=== PATIENT | male | born 1975 | race Hispanic/Latino ===

== ENCOUNTER 2016-12-15 02:41 | Emergency (ER) | payer OTHER ==
[2016-12-15 02:51] VITALS: BP 148/92; PULSE 77; RESP 16; TEMP 97; O2SAT 100
--- NOTE | 2016-12-15 03:05 | ED PDOC ---
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 PT states he attempted to get it out but thinks he pushed it in further. Past Medical History Reviewed: Historical Data, Nursing Documentation, Vital Signs Vital Signs: Last Vital Signs Temp 97.0 F L 12/15/16 02:49 Pulse 77 12/15/16 02:49 Resp 16 12/15/16 02:49 BP 148/92 H 12/15/16 02:49 Pulse Ox 100 12/15/16 02:49 - Medical History PMH: No Chronic Diseases - Surgical History Surgical History: No Surg Hx - Family History Family History: States: No Known Family Hx - Living Arrangements Living Arrangements: With Family - Social History Current smoker - smoking cessation education provided: No - Immunization History Hx Tetanus Toxoid Vaccination: No Hx Influenza Vaccination: No Hx Pneumococcal Vaccination: No - Home Medications Home Medications: Ambulatory Orders Medication Instructions Recorded Naproxen 375 mg PO Q8 PRN #21 tab 07/04/14 Naproxen [Naprosyn] 500 mg PO BID #20 tablet 01/13/16 - Allergies Allergies/Adverse Reactions: Allergies Allergy/AdvReac Type Severity Reaction Status Date / Time seafood Allergy ANAPHYLAXIS Uncoded 01/13/16 22:36 Review of Systems ROS Statement: Except As Marked, All Systems Reviewed And Found Negative ENT: Positive for: Ear Pain (Right ear, FB ) Skin: Negative for: Rash, Lesions Physical Exam - Reviewed Nursing Documentation Reviewed: Yes Vital Signs Reviewed: Yes - Physical Exam Appears: Positive for: Well, Non-toxic, No Acute Distress Head Exam: Positive for: ATRAUMATIC, NORMAL INSPECTION, NORMOCEPHALIC Skin: Positive for: Normal Color, Warm, DRY Eye Exam: Positive for: Normal appearance ENT: Positive for: Normal ENT Inspection, Other (FB in right ear - Norml TM once removed ) Neck: Positive for: Normal, Painless ROM Respiratory: Negative for: Accessory Muscle Use, Respiratory Distress Back: Positive for: Normal Inspection Extremity: Positive for: Normal ROM Neurologic/Psych: Positive for: Alert, Oriented - ECG O2 Sat by Pulse Oximetry: 100 Medical Decision Making Medical Decision Making: FB removed with allegator forceps. First attempted. Well-tolerated by patient. Disposition - Clinical Impression Clinical Impression: Foreign body in ear - Patient ED Disposition Is Patient to be Admitted: No Counseled Patient/Family Regarding: Diagnosis, Need For Followup - Disposition Referrals: [facility] [Outside] Disposition: Routine/Home Disposition Time: 03:01 Condition: GOOD Instructions: Ear Foreign Body (ED)
== END 2016-12-15 03:25 | disposition home or self-care (01) ==
LOC: H.ER 02:41
DX: T16.9XXA Foreign body in ear, unspecified ear, initial encounter (principal)

== ENCOUNTER 2018-01-23 08:14 | Emergency (ER) | payer OTHER ==
[2018-01-23 08:19] VITALS: BMI 33.3
[2018-01-23] MEDS ORDERED: Naproxen 500 MG TAB PO ONE ×2 (08:52→09:08)
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
[2018-01-23 10:19] VITALS: BP 126/78; PULSE 78; RESP 19; TEMP 97; O2SAT 98
--- NOTE | 2018-01-23 12:34 | RAD ---
Date of service: 01/23/2018 HISTORY: Posttraumatic back pain. COMPARISON: No prior. FINDINGS: BONES: Alignment maintained. No fracture. DISC SPACES: Normal. SOFT TISSUES: Normal. OTHER FINDINGS: None. IMPRESSION: Normal radiographs of the thoracic spine.
--- NOTE | 2018-01-23 12:35 | RAD ---
Date of service: 01/23/2018 PROCEDURE: Radiographs of the Lumbar Spine. HISTORY: Posttraumatic back pain. COMPARISON: No prior. FINDINGS: BONES: Normal alignment. No listhesis. No fracture. DISC SPACES: Unremarkable. OTHER FINDINGS: None. IMPRESSION: Unremarkable radiographs of the lumbar spine.
== END 2018-01-23 10:24 | disposition home or self-care (01) ==
LOC: H.ER 08:14
DX: M54.9 Dorsalgia, unspecified (principal)